=== PATIENT | male | born 1970 | race American Indian/Alaskan Native ===

== ENCOUNTER 2020-07-23 10:17 | Day surgery (SDC) | payer OTHER, MEDICAID ==
[~2020-07-23 10:17] MED LIST: SODIUM CHLORIDE 0.9% 1000 ML 1,000 ML IV SCH
[2020-07-23] MEDS ORDERED: LIDOCAINE MPF (2%) 20 MG/1 ML VIAL 5 ML ONE (10:59)
[2020-07-23] MEDS ORDERED: propofoL 200 MG/20 ML VIAL IV ONE (10:59)
[2020-07-23] MEDS ORDERED: fentaNYL 100 MCG/2 ML INJ ONE (11:17)
--- NOTE | 2020-07-23 11:54 | Procedure Note ---
Date of procedure: 07/23/20 Pre-op diagnosis: Colon Polyp Screening Post-op diagnosis: other (Solitary,Small Transverse Colon Polyp (possibly Hyperplastic)/ Few,Scattered Diverticuli/ Minor, Internal Hemorrhoid) Procedure: Colonoscopy with Biopsy Anesthesia: MAC Surgeon: NI MIKE Estimated blood loss: minimal Pathology: list Specimen disposition: to lab Condition: stable Disposition: same day (Avoid aspirin and NSAID for 4 days; encourage fiber intake and follow up in 1 to 2 weeks ([phone]).)
--- NOTE | 2020-07-23 12:30 | Operative Report ---
COLONOSCOPY INDICATIONS: This is a 50-year-old -[place] gentleman in otherwise good health, who because of his age had a colonoscopy done as part of colon polyp screening. DESCRIPTION OF PROCEDURE: The procedure was done after getting informed consent with MAC anesthesia. Initial rectal exam was unremarkable. Instrument was passed through the rectum onto the cecum, which was identified with ileocecal valve and the appendiceal orifice. Visualization was fair to good. The cecum, ascending colon showed normal mucosa. There were a small possibly hyperplastic polyp noted in the proximal transverse colon that was removed by cold biopsy. There were a few minor diverticula noted in the transverse and in the left colon and the rectum showed minor internal hemorrhoid on the retroverted view. There is minimal bleeding from the biopsy sites. No complications associated with the procedure. ASSESSMENT: Colon polyp screening, solitary small possibly hyperplastic polyp in the proximal transverse colon, few scattered diverticula, minor internal hemorrhoid. PLAN: To encourage the patient to take fiber supplements, avoid aspirin and aspirin-related products and follow up in the office in 1-2 weeks' time. Procedure was done in the GI lab with assistance of the GI lab team, which included RN, Bere Epps; Supa sears as well as [place] and with assistance of Anesthesia. JOB# [id number] BING/DELROY
--- NOTE | 2020-07-23 12:59 | Anesthesia Consultation ---
Anesthesia Consult and Med Hx Date of service: 07/23/20 - Airway Anesthetic Teeth Evaluation: Good ROM Head & Neck: Adequate Mental/Hyoid Distance: Adequate Mallampati Class: Class III Intubation Access Assessment: Possibly Difficult - Pulmonary Exam CTA: Yes - Cardiac Exam Cardiac Exam: RRR - Pre-Operative Health Status ASA Pre-Surgery Classification: ASA2 Proposed Anesthetic Plan: MAC - Pulmonary Hx Smoking: No Hx Respiratory Symptoms: No Hx Sleep Apnea: Yes (compliant with CPAP) - Cardiovascular System Hx Hypertension: Yes (took HCTZ this morning) Hx Heart Attack/AMI: No - Central Nervous System CVA: No - Endocrine Hx Renal Disease: No Hx Liver Disease: No Hx Insulin Dependent Diabetes: No Hx Non-Insulin Dependent Diabetes: No Hx Thyroid Disease: No - Other Systems Hx Obesity: Yes (BMI 38)
--- NOTE | 2020-07-23 12:59 | Post Anesthesia Evaluation ---
- Post Anesthesia Evaluation Patient Participated: Yes Airway Patent: Yes Stable Respiratory Function: Yes Nausea/Vomiting: No Temp > 96.8F: Yes Pain Manageable: Yes Adequeate Hydration: Yes Anesthesia Complications: No
--- NOTE | 2020-07-23 12:59 | Anesthesia Day of Surgery ---
Anesthesia Day of Surgery - Day of Surgery Patient Examined: Yes Patient H&P Reviewed: Yes Patient is NPO: Yes
[2020-07-23 13:20] VITALS: BP 137/91
== END 2020-07-23 10:18 | disposition home or self-care (01) ==
LOC: GIO 10:17
DX: Z12.11 Encounter for screening for malignant neoplasm of colon (principal); K63.5 Polyp of colon; K57.30 Diverticulosis of large intestine without perforation or abscess without bleeding; K64.8 Other hemorrhoids; I10 Essential (primary) hypertension; G47.30 Sleep apnea, unspecified; E66.9 Obesity, unspecified; Z79.899 Other long term (current) drug therapy; Z68.38 Body mass index [BMI] 38.0-38.9, adult
CPT/HCPCS: 45380; 88305; J2704; J3010; J7030